=== PATIENT | female | born 1945 | race Caucasian/White ===

== ENCOUNTER 2023-03-23 14:31 | Outpatient (RCR) | payer MEDICARE, OTHER, SELFPAY | END 2023-03-23 23:59 | disposition home or self-care (01) | LOC: RST 14:31 | PROVIDERS: ATTENDING PHYSICIAN Nurse Practitioner Adult Health; FAMILY PHYSICIAN Internal Medicine | DX: I69.320 Aphasia following cerebral infarction (principal); I69.328 Other speech and language deficits following cerebral infarction; I69.398 Other sequelae of cerebral infarction; Z73.6 Limitation of activities due to disability | CPT/HCPCS: 92507; 97530; 97535 ==

== ENCOUNTER → 2023-04-02 10:12 | Outpatient (REF) | payer MEDICARE, OTHER, SELFPAY ==
[2023-04-02 12:17] LABS: HDL Cholesterol 51 mg/dl; LDL Cholesterol, Calculated 63 mg/dl; Total Cholesterol 137 mg/dl (50-199); Triglyceride 118 mg/dl (10-149); Very Low Density Lipoprotein 23 mg/dl (0-30)
== END ==
LOC: HWLAB 10:12
PROVIDERS: ATTENDING PHYSICIAN Internal Medicine; REFERRING PHYSICIAN Nurse Practitioner Adult Health
DX: E78.00 Pure hypercholesterolemia, unspecified (principal)
CPT/HCPCS: 36415; 80061

== ENCOUNTER 2023-04-25 13:34 | Outpatient (RCR) | payer MEDICARE, OTHER, SELFPAY | END 2023-04-25 23:59 | disposition home or self-care (01) | LOC: RST 13:34 | PROVIDERS: ATTENDING PHYSICIAN Nurse Practitioner Adult Health; FAMILY PHYSICIAN Internal Medicine | DX: I69.398 Other sequelae of cerebral infarction (principal); Z73.6 Limitation of activities due to disability; I69.320 Aphasia following cerebral infarction; I69.328 Other speech and language deficits following cerebral infarction | CPT/HCPCS: 92507; 97530; 97535 ==

== ENCOUNTER 2023-05-25 14:26 | Outpatient (RCR) | payer MEDICARE, OTHER, SELFPAY | END 2023-05-25 23:59 | disposition home or self-care (01) | LOC: RST 14:26 | PROVIDERS: ATTENDING PHYSICIAN Nurse Practitioner Adult Health; FAMILY PHYSICIAN Internal Medicine | DX: I63.9 Cerebral infarction, unspecified (principal); I69.320 Aphasia following cerebral infarction; I69.328 Other speech and language deficits following cerebral infarction | CPT/HCPCS: 92507; 97530; 97535 ==

== ENCOUNTER 2023-06-25 08:22 | Outpatient (RCR) | payer MEDICARE, OTHER, SELFPAY | END 2023-06-25 23:59 | disposition home or self-care (01) | LOC: RST 08:22 | PROVIDERS: ATTENDING PHYSICIAN Nurse Practitioner Adult Health; FAMILY PHYSICIAN Internal Medicine | DX: I69.328 Other speech and language deficits following cerebral infarction (principal); I69.320 Aphasia following cerebral infarction; Z73.6 Limitation of activities due to disability | CPT/HCPCS: 92507; 97530; 97535 ==

== ENCOUNTER 2023-07-26 10:08 | Outpatient (RCR) | payer MEDICARE, OTHER, SELFPAY | END 2023-07-26 23:59 | disposition home or self-care (01) | LOC: RST 10:08 | PROVIDERS: ATTENDING PHYSICIAN Nurse Practitioner Adult Health; FAMILY PHYSICIAN Internal Medicine | DX: I69.328 Other speech and language deficits following cerebral infarction (principal); I69.320 Aphasia following cerebral infarction; Z73.6 Limitation of activities due to disability | CPT/HCPCS: 92507; 97530; 97535 ==

== ENCOUNTER 2023-08-16 09:15 | Outpatient (RCR) | payer MEDICARE, OTHER, SELFPAY | END 2023-08-16 23:59 | disposition home or self-care (01) | LOC: RST 09:15 | PROVIDERS: ATTENDING PHYSICIAN Nurse Practitioner Adult Health; FAMILY PHYSICIAN Internal Medicine | DX: I69.320 Aphasia following cerebral infarction (principal); I69.328 Other speech and language deficits following cerebral infarction; Z73.6 Limitation of activities due to disability | CPT/HCPCS: 92507; 97530; 97535 ==

== ENCOUNTER 2023-08-27 23:54 | Inpatient (IN) | payer MEDICARE, OTHER, SELFPAY ==
[2023-08-27] VITALS (7 sets, daily range): BP systolic 169–190; BP diastolic 63–81; BMI 17.7
--- NOTE | 2023-08-27 22:20 | EDRN ---
Upon this RN's/pt.'s arrival to ED Rm. 28, stroke alert immediately called by head pastry chef for reported rt. sided gaze, change in mental status, and severe expressive aphasia. 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 Pt. immediately brought to CT; however, was
vomiting on table, requiring staff to stop scan and turn pt. on her side to vomit. Bao brought to CT by assisting RN, administered through prehospital IV at CT, Ct then able to be completed. Upon RN's return to Rm. 28, pt.'s and son came
back to room and met Dr. Jerez. Dr. Jerez discussed recommendation for TNK, as pt. candidate. Pt. not able to answer for herself r/t expressive aphasia and possible confusion; however, and son reporting pt. would 'absolutely not want
that medication'. Risks/ benefits explained in detail to family and pt., but family continues to refuse. Pt. does shake her head no when RN asks if pt. would want medication.
[2023-08-27 22:31] LABS: % Basophils 0.7 % (0-2); % Eosinophils 5.1 % (0-6); % Immature Granulocytes 0.2 % (0-0.5); % Lymphocytes 41.9 % (20.5-51.1); % Monocytes 8.7 % (1.7-9.3); % Neutrophils 43.4 % (42.2-75.2); Absolute Basophils 0.1 10^3/uL (0-0.2); Absolute Eosinophils 0.5 10^3/uL (0-0.7); Absolute Lymphocytes 3.9 10^3/uL (1.2-3.4); Absolute Monocytes 0.8 10^3/uL (0.1-0.6); Absolute Neutrophils 4.1 10^3/uL (1.4-6.5); Hematocrit 36.3 % (37.0-47.0); Hemoglobin 12.7 g/dL (12.0-16.0); Mean Corpuscular Hgb 30.9 pg (27.0-31.0); Mean Corpuscular Volume 88.3 fL (81.0-99.0); Mean Platelet Volume 10.6 fL (7.4-10.4); Nucleated Red Blood Cells % 0 %; Platelet Count 307 10^3/uL (130-400); Red Blood Cell Count 4.11 10^6/uL (4.20-5.40); Red Cell Dist. Width 13.2 % (11.5-14.5); White Blood Cell Count 9.4 10^3/uL (4.8-10.8)
--- NOTE | 2023-08-27 22:37 | ED.CVA ---
History of Present Illness
General
Chief Complaint: CVA/TIA Symptoms
Source: family and ambulance crew
Time Seen by Provider: 08/27/23 22:20
Nursing documentation reviewed up to this point in time: agreed with
Onset of Stroke Symptoms
Onset of symptoms known: Yes
Date of onset of symptoms: 08/27/23
Time of onset of symptoms: 21:15
Time pt last seen normal is known: Yes
Date last time pt seen normal: 08/27/23
Time last time pt seen normal: 21:00
History of Present Illness
History of Present Illness:
77-year-old female presents with confusion and expressive aphasia. Found on the floor by her in this state. They are in the process of moving and patient was watching television in her room without any other furniture. She was seated on
the floor when he found her. She was able to respond to him. She was in a confused state.
Vital signs are stable. Patient not hypoxic
Nursing note reviewed. I agree with nursing documentation up to this point in time.
Home Meds and allergies reviewed.
NUMBER AND COMPLEXITY OF PROBLEMS ADDRESSED AT THE ENCOUNTER
� Chronic conditions affecting care:
� Acute Exacerbation and/or Progression of Chronic Illness:
� Differential Diagnosis includes:
AMOUNT AND/OR COMPLEXITY OF DATA TO BE REVIEWED AND ANALYZED
I performed an independent evaluation of the following and my interpretation is:
EKG:
CT:
X-rays:
Ultrasound:
Laboratory Studies:
Other:
Review of other/old records:
Clinical information was obtained by an independent historian:
Prescriptions/Medications Considered but not given:
Further testing considered but not performed:
RISK OF COMPLICATIONS AND/OR MORBIDITY OR MORTALITY OF PATIENT MANAGEMENT
Social determinants of health affecting care: Good Social Support
Discussion with other providers: Dr. Rose, neurology
Escalation of care including admission/observation vs risk of discharge considered:
CRITICAL CARE NOTE:
Critical care statement: A total of 60 minutes of critical care time was provided for this patient. This time is separate from time utilized to perform the aforementioned documented procedures. Aggregate critical care time includes only time
during which I was engaged in work directly related to the patient's care, as described above, whether at the bedside or elsewhere in the Emergency Department.
Total Time (exclusive of procedures):
Update: and son both agree that patient does not want TNK. They do understand the risks of refusal. They feel that patient would not want any
Past History
Past History
ED Past Medical History: CVA (Left occipital stroke November 2022)
ED Past Surgical History: None
Social History
Tobacco: Smoker
Alcohol: None
Drug: None
Personal:
Living: with family
Family History
Family History: Other (Reviewed and noncontributory)
Review of Systems
Review of Systems
Allergies reviewed?: Yes
Other source history: family
All Other Systems: ROS reviewed and negative except as documented in HPI and ROS
Constitutional: Reports no symptoms
EENT: Reports no symptoms
Respiratory: Reports no symptoms
Cardiac: Reports no symptoms
ABD/GI: Reports no symptoms
: Reports no symptoms
Musculoskeletal: Reports no symptoms
Skin: Reports no symptoms
Neurological: Reports no symptoms
Endocrine: Reports no symptoms
Hematologic/Lymphatic: Reports no symptoms
Psychiatric: Reports anxiety
Phy Exam
General Physical Exam
General Presentation: well appearing
General age: appears stated age
General Skin: warm
General Habitus: normal
General Mental: alert
General Hydration: appears well hydrated
Cardiovascular Exam
Cardiovascular Exam: regular rate/rhythm
Pulmonary Exam
Pulmonary Exam: lungs clear and no respiratory distress
Neurological Exam
Neurological Exam: confused
Musculoskeletal Exam
Musculoskeletal Exam: full ROM and neck pain
Skin Exam
Skin Exam: normal color and warm/dry
Psychiatric Exam
Psychiatric Exam: labile
Scores
NIH Stroke Score
Level of Consciousness: 0 - Alert
LOC Questions: 2-Neither correct
LOC Commands: 0-Performs both correctly
Best Horizontal Gaze: 2-Total gaze palsy
Visual Lyon: 2=Full hemianopia
Facial Palsy: 1=Minor paralysis
Motor - Right Arm: 0=No drift 10 seconds
Motor - Left Arm: 0=No drift 10 seconds
Motor - Right Le-No drift 5 seconds
Motor - Left Le-No drift 5 seconds
Limb Ataxia: 0-Absent
Sensation: 0-Normal
Best Language: 2-Severe aphasia
Dysarthria: 0-Normal
Extinction and Inattention: 1-Sensory inattention
Total Score:: 10
Thrombolytic Contraindication
Reasons for NON-Tx with Thrombolytics ABSOLUTE Exclusions: Patient/family refused
Course
Orders/Labs/Results
Orders:
Orders
08/27/23 22:21
Electrocardiogram (*1) Urgent
Reason for Study: Other
Other Reason for Exam: Possible Stroke
Bedside Glucose- Treatment ONCE
Cardiac Monitoring- Treatment ONCE
EKG- Treatment ONCE
IV Insert/Care/Rem.- Treatment PRN
Vital Signs As Directed
Frequency: Other
Weight As Directed
Frequency: Once
Comment: ZERO STRETCHER SCALE FOR ACCURATE WEIGHT
O2 Therapy [RESP] Urgent
Titrate/Wean O2 to maintain O2 sat greater than (%): 93
Special Instructions: MAINTAIN CONTINUOUS O2 SATS > OR = 93%
08/27/23 22:22
Complete Blood Count/With Diff Urgent
Comprehensive Metabolic Panel Urgent
PTT Urgent
Prothrombin Time Urgent
Troponin I Urgent
08/27/23 22:23
CT Head/Neck Ang STROKE ALERT Urgent
Comment:
Reason For Exam: aphasia. recent cva
08/27/23 22:25
CT Head W/o Cont STROKE ALERT Urgent
Comment: incorrect order placed by attending
Reason For Exam: aphasia
08/27/23 22:26
Ondansetron Injectable [Zofran] 4 mg .ROUTE .STK-MED ONE
08/27/23 22:53
Speech Screening from [facility] Routine
08/27/23 22:57
Ondansetron Injectable [Zofran] 4 mg IV NOW STA
08/27/23 23:24
Ondansetron Injectable [Zofran] 4 mg IV NOW STA
08/27/23 23:44
Admit/Transfer Patient As Directed
Co-Sign Provider:
Level of Care: Inpatient admission
Assign to:: Telemetry
Physician / Group: Skip
Diagnosis: N/V, Expressive Aphasia
Reason for Telemetry: CVA/TIA
Date to Stop Telemetry: 08/30/23
Time to Stop Telemetry: 11:00
Reason for Hospitalization: N/V, Expressive Aphasia
Expected length of stay greater than two midnights?: Yes
ELOS- Estimated Length of Stay in days: 3
I certify the patient meets the requirements for IP care: Yes
08/27/23 23:46
Code Status As Directed
Resuscitation Status: Do not resuscitate
Reached after discussion with pt or family/Healthcare POA: Yes
08/27/23 23:47
DNR Bracelet Application ONCE
08/28/23 00:00
US Abdomen Complete/Upper Stat
Reason For Exam: Abd Pain, N/V, Abnormal LFTs
08/28/23 01:10
HydrALAZINE [Apresoline] 10 mg IV Q6HPRN PRN
Lactated Ringers [Lr] 1,000 ml IV 80 mls/hr
Ondansetron Injectable [Zofran] 4 mg IV Q6HPRN PRN
08/28/23 01:10
Consult Notification Routine
Specialty to Notify: Neurology
NEUROLOGY CONSULT Routine
Consulting Provider: Abhishek Rose
Was physician already notified: No
Reason for consult: CVA v Recrudescence
Activity As Directed
Activity Level: Ambulate
With Assistance
EKG with chest pain [ECG as needed] As Directed
ECG as needed for:: Chest Pain
I/O [Intake/ Output] As Directed
Frequency: Per unit guidelines
Neurological Checks As Directed
Frequency: q4h
Orthostatic Vital Signs As Directed
Orthostatic VS Frequency: BID
Pneumatic Compression Sleeves As Directed
Type: Knee high
Vital Signs As Directed
Frequency: Per unit guidelines
Oxygen Therapy [O2 Therapy] [RESP] Routine
Titrate/Wean O2 to maintain O2 sat greater than (%): 94
Ot Eval And Treat Routine
PT Consult [Pt Eval And Treat] Routine
Activity Level: Ambulate
With Assistance
Speech Therapy Eval & Treat Routine
DX Deep Vein Thrombosis Video Routine
08/28/23 Breakfast
Clear Liquid
At Your Request: Full Participation
Does patient need a safe tray?: No
Reason for opting out of Talent Program Manager order writing: Provider Decision
Basic Metabolic Panel IN AM
Cardiovascular Evaluation IN AM
Complete Blood Count/No Diff IN AM
MR Brain Without Contrast IN AM
Comment:
Reason For Exam: CVA / TIA
Recent pill cam endoscopy?: No
08/28/23 08:00
Aspirin Chewable [Low Strength Aspirin] 81 mg PO DAILY
Atorvastatin [Lipitor] 40 mg PO DAILY
NIFEdipine EXTENDED RELEASE [Procardia Xl (Extended Release)] 30 mg PO DAILY
Pantoprazole [Protonix IV] 40 mg IV DAILY
08/30/23 11:00
DC Protocol for Telemetry ONCE
Abnormal Lab Results
08/27/23
22:22
RBC 4.11 L 10^6/uL
(4.20-5.40)
Hct 36.3 L %
(37.0-47.0)
MPV 10.6 H fL
(7.4-10.4)
Absolute Lymphs (auto) 3.9 H 10^3/uL
(1.2-3.4)
Absolute Monos (auto) 0.8 H 10^3/uL
(0.1-0.6)
BUN 23 H mg/dl
(7-17)
Creatinine 1.1 H mg/dL
(0.6-1.0)
Glucose 115 H mg/dl
(70-99)
AST 62 H U/L
(14-36)
ALT 37 H U/L
(0-35)
Alkaline Phosphatase 305 H U/L
(38-126)
08/27/23 22:22
08/27/23 22:22
Vital Signs
Initial and Last Documented VS:
Initial Vital Signs
Pulse Resp Pulse Ox
86 17 97
08/27/23 22:43 08/27/23 22:43 08/27/23 22:43
Last Documented Vital Signs
Temp Pulse Resp BP Pulse Ox
97.9 F 64 18 176/79 98
08/28/23 03:05 08/28/23 03:05 08/28/23 03:05 08/28/23 03:05 08/28/23 03:05
*Critical Care Note
Total Time (30-74mins, 75-104mins- exclusive of procedures): Not Applicable
Update Note
Update Note:
Dian Obando Head CT: No CT evidence for acute intracranial hemorrhage or transcortical infarct.
Large chronic transcortical infarct in the medial left occipital lobe and posterior medial left temporal lobe with associated encephalomalacia.
Chronic infarct in the posterior left thalamus.
Small chronic lacunar infarcts in the right caudate nucleus and basal ganglia.
Severe white matter leukoaraiosis in both cerebral hemispheres.
ASPECT score: 10
[facility]ian O[facility] CTA: NECK CTA:
SEVERE STENOSIS (70% diameter) in the PROXIMAL RIGHT ICA caused by severe calcific atherosclerotic plaque.
50-70% diameter stenosis in the distal left CCA and proximal left ICA.
Less than 50% diameter stenoses in both proximal vertebral arteries.
Moderate to severe discogenic degenerative disease in the cervical spine.
HEAD CTA:
Severe atherosclerotic plaque in both intracranial internal carotid arteries causing a 50-70% diameter stenosis on the left and less than 50% diameter stenosis on the right.
No CTA evidence for severe stenosis or occlusion in the middle or anterior cerebral arteries.
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
Atherosclerotic plaque in the right posterior cerebral artery and vertebral arteries causing less than 50% diameter stenosis.
Large chronic transcortical infarct in the medial left occipital and temporal lobes.
Small chronic lacunar infarcts in the right caudate nucleus and right basal ganglia.
Severe white matter leukoaraiosis in both cerebral hemispheres.
ED Attending Note
-
Portions of this chart may have been created with voice recognition software.� Occasional wrong word or��sound alike� substitutions may have occurred due to the inherent limitations of voice recognition software.
Discharge Plan
Departure
Patient Disposition: Admit
Date of Disposition: 08/27/23
Time of Disposition: 23:14
Admit to: Telemetry
Presentation/result/management discussed w/ accepting MD/DO: Hospitalist
Discharge Problem:
Acute cerebrovascular accident (CVA)
Interventions
Interventions:
*Risk Screen - Suicide Last Done: 08/27/23 22:58
*General Assessment Last Done: 08/27/23 22:58
*Neglect/Abuse Screening Last Done: 08/27/23 22:58
ED- Fall Risk Assessment Last Done: 08/28/23 01:02
*ED COVID-19 Vaccine History Last Done: 08/28/23 01:15
*Nursing Disposition Last Done: 08/28/23 01:02
ED- Pulmonary Assessment Last Done: 08/27/23 22:57
ED- Neurological Assessment Last Done: 08/27/23 22:47
ED- Cardiac Assessment Last Done: 08/27/23 22:57
ED Swallowing Screen Last Done: 08/28/23 01:02
Discharge Date and Time
Discharge Date/Time: 08/28/23 01:03
[2023-08-27 22:43] LABS: INR 1.01; PT 13.1 Sec (11.4-14.6)
[2023-08-27 22:44] LABS: APTT 27.8 Sec (23.4-35.0)
[2023-08-27 22:45] LABS: ALT (SGPT) 37 U/L (0-35); AST (SGOT) 62 U/L (14-36); Albumin 4.7 g/dl (3.5-5.0); Alkaline Phosphatase 305 U/L (38-126); Blood Urea Nitrogen 23 mg/dl (7-17); Calcium 9.9 mg/dl (8.4-10.2); Carbon Dioxide 23 mmol/L (22-30); Chloride 105 mmol/L (98-107); Glucose 115 mg/dl (70-99); Potassium 4.2 mmol/L (3.5-5.1); Sodium 139 mmol/L (135-145); Total Bilirubin 0.7 mg/dl (0.2-1.3); Total Protein 7.6 g/dl (6.3-8.2); eGFR 51.75
[2023-08-27] MEDS: ZOFRAN 4 MG IV ×2 (22:57→23:25)
[2023-08-27 23:24] LABS: Troponin I < 0.012 ng/ml
--- NOTE | 2023-08-27 23:49 | HPS.HSE ---
Family Physician
-
Family Physician: Fabiola Hernandez DO
Chief Complaint
-
N/V, Aphasia
History of Present Illness
Patient is a 77y F with PMH significant for hypertension and prior CVA (11/2022) who presents to ED complaining of N/V and 'feeling lousy'. History obtained from patient and family at the bedside. states that they are in the process of
moving and there is very little furniture in the home. Patient was seated in the bedroom on the floor watching TV. The entered the room some time later (less than one hour unobserved) and found the patient lying face down on the floor.
She was awake when he checked on her and patient stated 'I feel lousy'. He helped her to sit upright and she began to have episodes of emesis. estimate about 6 episodes of non-bloody bilious emesis. Patient denies any abdominal pain. She
denies any fevers / chills.
attempted to discuss her symptoms, but noted that she seemed to have difficulty producing words and would occasionally speak nonsense.
On further questioning, it is noted that expressive aphasia in addition to homonymous hemianopsia were symptoms of her original stroke in 11/2022.
/ son note no NEW neurologic deficits, but significant worsening of her prior symptoms.
In the ED, patient is holding her abdomen and continues to complain of nausea and 'feeling lousy'.
Medical History
Past Medical History
Past Medical History: Reports Other
Additional Past Medical History:
Hypertension
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
Past Surgical History: Reports None
Social History
Tobacco: Former Smoker (Quit smoking 11/2022 after CVA. > 40 pack years total use.)
Alcohol: None
Drug: None
Personal:
Living: With Family
Family History
Family History: Not pertinent
Allergies / Home Medications
Allergies reflects when Allergies were last updated in [employer].
Home Medications with original date entered in [employer]
Allergy/Medication List:
Allergies
Allergy/AdvReac Type Severity Reaction Status Date / Time
No Known Allergies Allergy Verified 12/17/22 14:23
Home Medications
aspirin 81 mg chewable tablet 81 mg PO DAILY 90 days #90 tabs 12/19/22
nifedipine 30 mg tablet,extended release 30 mg PO DAILY 30 days #30 tabs 12/19/22
atorvastatin 40 mg tablet 40 mg PO DAILY 08/27/23
Review of Systems
-
History Source: Patient and Family
A 12 point ROS was completed and negative except as noted: Yes
Constitutional: Reports Fatigue; Denies Fever or Chills
EENT: Denies Sore Throat
Respiratory: Denies Cough or Trouble Breathing
Cardiac: Denies Chest Pain or Palpitations
Abdomen/GI: Reports Nausea and Vomiting; Denies Abdominal Pain, Diarrhea, Constipated, Bloody Stools or Black Stools
: Denies Dysuria, Frequency or Flank Pain
Neurological: Denies Dizzy or Headache
Psych: Denies Depression or Anxiety
Physical Exam
Vital Signs
Vital Signs
Temp Pulse Resp BP Pulse Ox
97.6 F 72 13 169/80 98
08/27/23 23:00 08/27/23 23:30 08/27/23 23:30 08/27/23 23:30 08/27/23 23:30
Physical Exam
General: Other (77y F in mild distress due to nausea / abdominal discomfort.)
HEENT: Other (Dry MM. Neck supple.)
Respiratory: Other (Bibasilar rales about 1/3 up. No wheeze / rhonchi.)
Cardiac: S1/S2, Regular Rhythm and Murmur (II/ BESSIE)
GI: Soft, Non Distended, Normal Bowel Sounds and Other (Mild, diffuse tenderness. Pos BS. No rebound / guarding.)
Musculoskeletal: No Clubbing, No Cyanosis and Other (Trace pedal edema.)
Neuro: Awake, Alert and Other (Expresive aphasia. Unable to name objects / answer most questions. Answers Y/N questions appropriately. Evident R visual field deficit.)
Laboratory Results
-
08/27/23 22:22
08/27/23 22:22
Laboratory Results
PT 13.1 Sec (11.4-14.6) 08/27/23 22:22
INR 1.01 08/27/23 22:22
APTT 27.8 Sec (23.4-35.0) 08/27/23 22:22
Total Bilirubin 0.7 mg/dl (0.2-1.3) 08/27/23 22:22
AST 62 U/L (14-36) H 08/27/23 22:22
ALT 37 U/L (0-35) H 08/27/23 22:22
Alkaline Phosphatase 305 U/L (38-126) H 08/27/23 22:22
Troponin I < 0.012 ng/ml 08/27/23 22:22
Impression/Plan
-
A/P: Patient is a 77y F with PMH significant for hypertension and prior CVA who presents to ED for evaluation of N/V and worsening aphasia.
Expressive Aphasia
Prior CVA with Right Homonymous Hemianopsia and Expressive Aphasia
- Admit for further evaluation and treatment.
- ? new CVA or (more likely) recrudescence of prior stroke symptoms due to other acute illness.
- Family notes no strictly new neurologic deficits.
- Continue ASA, statin, etc.
- Follow neuro exam for any changes.
- MRI in AM for comparison.
- Neurology evaluation for additional recommendations.
- Permissive hypertensive initial 24 hours and then adjust meds as needed for improved BP control.
N/V
Abnormal LFTs
- Unclear etiology. ? viral gastroenteritis, etc as primary issue here.
- Check abd US now to evaluate for possible GB disease, etc.
- Supportive care including IVFs, antiemetics, etc.
- Follow for any new / worsening symptoms.
- Further work-up depending on US results.
- Follow LFTs for changes.
Essential Hypertension
- BP elevated in the ED, but < 210/120.
- Permissive hypertension for now as noted above.
- Continue usual nifedipine with holding parameters.
- Adjust med regimen as needed in the next 24 hours for improved BP control.
DVT Prophylaxis: SCDs
Code Status: DNR
[2023-08-28] VITALS (11 sets, daily range): BP systolic 119–187; BP diastolic 47–80; PULSE 65–77; BMI 17.3
[2023-08-28] MEDS: LR 1000 IV ×2 (01:18→20:29)
[2023-08-28 07:29] LABS: Hematocrit 34.9 % (37.0-47.0); Mean Corp Hgb Conc. 34.4 g/dL (33.0-37.0); Mean Corpuscular Hgb 30.4 pg (27.0-31.0); Mean Corpuscular Volume 88.4 fL (81.0-99.0); Mean Platelet Volume 10.1 fL (7.4-10.4); Platelet Count 257 10^3/uL (130-400); Red Blood Cell Count 3.95 10^6/uL (4.20-5.40); White Blood Cell Count 6.3 10^3/uL (4.8-10.8)
[2023-08-28] MEDS: PROTONIX IV 40 MG IV (08:24)
[2023-08-28] MEDS: NSS (PRESERVATIVE FREE) 10 ML IV (08:24)
[2023-08-28] MEDS: LOW STRENGTH ASPIRIN 81 MG PO (08:25)
[2023-08-28] MEDS: PROCARDIA XL (EXTENDED RELEASE) 30 MG PO (08:25)
[2023-08-28] MEDS: LIPITOR 40 MG PO (08:26)
--- NOTE | 2023-08-28 08:45 | PTOTSP ---
Speech Language Pathology
Pt seen for language evaluation via the Quick Aphasia Battery (QAB), form 1A. Pt with an overall score of 5.29, indicating moderate deficits. Pt with the following scores (severity ratings) on the following subtests: word comprehension= 9.58
(WNL), sentence comprehension= 2.08 (severe), word finding= 1.00 (severe), grammatical construction= 7.00 (mod), speech motor programming= 10.00 (WNL), repetition= 10.00 (WNL), reading= 0.00 (severe). Deficits appear worse than when last seen by
REWRITER in outpatient. Pt currently emotional, which could have negatively affected performance.
Pt also seen for clinical bedside swallow evaluation. P.O. trials of puree, regular solids, and thin liquids provided. Adequate mastication, bolus formation, and A-P transit noted with no oral residue. No overt signs of aspiration.
Recommend:
(1) Regular solids/thin liquids
(2) General aspiration precautions
(3) Meds as tolerated
(4) Resume outpatient speech therapy at discharge
(5) REWRITER to continue to follow
[2023-08-28 08:49] LABS: Urine Albumin Negative (Neg - Trace); Urine Bilirubin Negative (Negative); Urine Character Clear (Clear); Urine Color Yellow; Urine Glucose Negative (Negative); Urine Ketone 1+ (Negative); Urine Leukocyte 1+ (Negative); Urine Nitrite Negative (Negative); Urine Occult Blood Negative (Negative); Urine Specific Gravity 1.005 (<1.030); Urine Urobilinogen Negative (Neg - 1+)
--- NOTE | 2023-08-28 08:59 | CON.NEURO4 ---
Addendum entered and electronically signed by Abhishek Rose MD 08/28/23 11:41:
Studies reviewed.
I have personally examined the patient. I reviewed and agree with the TAX COMPLIANCE MANAGER's Note.
My addenda:
Awake, alert, interactive. No acute distress.
Speech clear. Irritable. Some lack of word finding
Follows 2-step requests w/ difficulty. No tremor.
Extra-ocular movements grossly intact.
Facial movements full and symmetric. Hearing intact to normal conversational volume.
Normal UE movements bilaterally.
Neck: full ROM.
Chest: no dyspnea
Heart: no JVD
Ext: (-) Clubbing, (-) Cyanosis, (-) Edema
IMPRESSIONS/RECOMMENDATIONS:
Abrupt onset of questionable worsening of aphasia with significant emesis. Less likely to be associated with a neurological dysfunction and more likely the patient had secondary disorder producing symptoms
Due to relatively recent large ischemic stroke, recheck MRI of brain
Consult vascular surgery due to suggested 70% right internal carotid artery stenosis although this is likely asymptomatic
Continue usual aspirin
Eventual normotension starting at 2100 hrs.
Continue atorvastatin
Consider cognitive evaluation as outpatient
D/W patient
Will continue to follow pending results.
Original Note:
Documented by User: Ginger Decker NP 08/28/23 11:13
Consultation - Neurology 4
-
CONSULTING PHYSICIAN: Abhishek Rose MD
REFERRING PHYSICIAN: Hospitalists/Dr. Valdivia
DICTATED BY: CORBIN Dow
DATE/TIME OF REQUEST: 08/28/23
DATE/TIME OF CONSULTATION: 08/28/23
Reason for Consultation: Confusion
History of Present Illness:
This is a 77-year-old female who has presented to the hospital with report of nausea, vomiting, and worsened baseline aphasia. Patient is known to our inpatient and outpatient Neurology service since an encounter in November 2022 for a large left
occipital ischemic stroke.
From my previous evaluation on 12/18/22:
'This is a 77-year-old right-handed female who has presented to the hospital on 12/17/22 with report of right-sided visual field cut, ataxic gait, and right upper extremity weakness starting at 12/16/22 at 1700 while out to dinner. Patient is
currently confused and mildly aphasic; therefore, this information is mostly obtained from medical records. Patient reports that suddenly she lost her ability to have a 'normal reaction to things.' Her noted that her responses seemed slower
and she has having difficulty using a fork in her right hand. She proceeded to go home and go to bed at 1830. The following day (12/17/22), she woke up and her symptoms persisted, prompting him to bring her to the ER for evaluation. CT head was
obtained in the ER and demonstrates an acute/subacute left occipital infarct. She was not taking any blood-thinning medications. She was outside of the time window and not a candidate for TNK or IAT, she was loaded with aspirin and clopidogrel.
Currently, patient denies any headache, dizziness, swallow difficulty, numbness, weakness, chest pain, palpitations, and shortness of breath. She endorses right-sided vision loss in both eyes and reports that she is having difficulty formulating her
thoughts/slow speech.'
MRI brain on 12/18/22 confirmed a subacute large ischemic left occipital lobe infarct. 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 Patient completed 21 days of DAPT then discontinued Plavix and has continue on aspirin 81mg daily. She has a
residual right homonymous hemianopia and mild aphasia since her stroke in November 2022. She is still not driving.
Yesterday (08/27/23), patient's reports that she was sitting on the floor watching TV as they are in the process of moving and have little furniture left in the house. About an hour later, he returned to the room and found her lying facedown
on the ground. She told him she felt 'lousy.' She remembers feeling nauseous and then proceeded to vomit about several times. Following her vomiting, he reports that her baseline aphasia was significantly worsened, prompting him to bring her to the
ER for evaluation. CT head was obtained on arrival and is negative for any acute findings. CTA head/neck was obtained and is suggestive of 70% right ICA stenosis and 50-70% L ICA stenosis which was not previously reported on MRA head/neck imaging
from 11/2022. She was not a candidate for TNK/IAT due to family refusal and lack of LVO. Today (08/28/23), patient remains moderately aphasic, speech therapy at bedside reports that this is worse than her baseline. She denies any headache, dizziness,
vision changes, speech/swallow difficulty, numbness, weakness, chest pain, palpitations, and shortness of breath.
Past Medical History: Large left occipital ischemic stroke 11/2022, HTN, HLD
Surgical History: Denies.
Family History: Reviewed and noncontributory.
Social History: Former smoker, quit in February 2023. Occasional alcohol. Denies illicit drug use.
Allergies: No known allergies.
Home Medications: See below.
Review of Symptoms:
Patient denies any fever, headache, chest pain, shortness of breath, GI or symptoms.
�Per the HPI.�All systems are reviewed negative except above.
Physical Exam:
The patient is afebrile, abdomen is nondistended, breathing is unlabored, skin is warm and dry, no edema.
NIH Stroke Scale:
I performed the NIH stroke scale on the patient on 08/28/23 at 0900. The patient scored 4 points on the NIH stroke scale assessment, which were assigned as follows: See below.
Neurologic Examination:
The patient is awake, alert and oriented to person, place, and year with yes/no choices, not month.. She is able to follow inconsistent commands and answer some questions appropriately. There is moderate aphasia, no dysarthria. On cranial nerve
assessment, pupils are 3 mm bilateral, round and reactive to light and accommodation. There is a right homonymous hemianopia. Extraocular movements are intact. Facial sensations are intact and bilaterally symmetrical, there is no facial asymmetry.
Hearing is intact bilaterally to normal conversation volume. Tongue palate and uvula are midline. Sternocleidomastoid strengths are full bilaterally. Motor strengths are 5/5 bilateral upper and lower extremities on medical research [place] scale.
There is no drift or involuntary movement noted. Deep tendon reflexes are 2+ bilateral upper and lower extremities and Babinski is absent bilaterally. There was no extinction noted on double simultaneous stimulation. Coordination is intact by finger
to nose bilaterally.
Lab Results: See below.
Neuro Imaging:
1. CT Head 08/27/23: No CT evidence for acute intracranial hemorrhage or transcortical infarct. Large chronic transcortical infarct in the medial left occipital lobe and posteromedial left temporal lobe with associated encephalomalacia. Chronic
infarct in the posterior left thalamus. Small chronic lacunar infarcts in the right caudate nucleus and basal ganglia. Severe white matter leukoaraiosis in both cerebral hemispheres. ASPECT score: 10.
2. CTA head/neck 08/27/23: NECK CTA: SEVERE STENOSIS (70% diameter) in the PROXIMAL RIGHT ICA caused by severe calcific atherosclerotic plaque. 50-70% diameter stenosis in the distal left CCA and proximal left ICA. Less than 50% diameter stenoses in
both proximal vertebral arteries. Moderate to severe discogenic degenerative disease in the cervical spine.
HEAD CTA:
Severe atherosclerotic plaque in both intracranial internal carotid arteries causing a 50-70% diameter stenosis on the left and less than 50% diameter stenosis on the right. No CTA evidence for severe stenosis or occlusion in the middle or anterior
cerebral arteries. CHRONIC COMPLETE OCCLUSION of the P1 segment of the LEFT POSTERIOR CEREBRAL ARTERY. Atherosclerotic plaque in the right posterior cerebral artery and vertebral arteries causing less than 50% diameter stenosis. Large chronic
transcortical infarct in the medial left occipital and temporal lobes. Small chronic lacunar infarcts in the right caudate nucleus and right basal ganglia. Severe white matter leukoaraiosis in both cerebral hemispheres.
Differentials for the patient's presentation include:
1. Acute ischemic stroke producing worsened baseline aphasia possible.
2. TME possibly contributing to worsened baseline aphasia.
3. CT head suggestive of multiple old ischemic infarcts in the left thalamus, right caudate nucleus, and basal ganglia, in addition to known left occipital infarct.
4. CTA head/neck suggestive of 70% R ICA stenosis and 50-70% L ICA stenosis not previously reported on MRA imaging from 11/2022, unclear at this point if this is related to current speech change.
Patient has the following risk factors for their symptoms: Hx stroke, HTN, HLD, vomiting
IV Tenecteplase/IAT candidacy: She was not a candidate for TNK/IAT due to family refusal and lack of LVO.
Recommendations:
-Continue aspirin 81mg daily.
-MRI brain noncontrast pending.
-Vascular Surgery evaluation for ICA stenosis.
-Permissive hypertension SBP<220, DBP<120 until 2100 tonight, then goal normotension.
-LDL goal <70. LDL is 61. Continue home atorvastatin 40mg daily.
-Goal normoglycemia, hbA1c is 5.6.
-NIHSS and neurological checks per unit guidelines.
-Provide patient with a stroke education packet.
-PT/OT/ST evaluations.
-DVT prophylaxis.
-Will follow pending results.
Discussed patient care with: Dr. Rose,
Vital Signs and Labs
-
Vital Signs and Labs:
Vital Signs
Temp Pulse Resp BP Pulse Ox
97.9 F 60 16 185/73 97
08/28/23 07:57 08/28/23 07:57 08/28/23 07:57 08/28/23 07:57 08/28/23 07:57
Lab Results
08/28/23 07:04
08/28/23 07:04
PT 13.1 Sec (11.4-14.6) 08/27/23 22:22
INR 1.01 08/27/23 22:22
APTT 27.8 Sec (23.4-35.0) 08/27/23 22:22
Sodium 137 mmol/L (135-145) 08/28/23 07:04
Potassium 4.1 mmol/L (3.5-5.1) 08/28/23 07:04
BUN 19 mg/dl (7-17) H 08/28/23 07:04
Glucose 87 mg/dl (70-99) 08/28/23 07:04
Calcium 9.6 mg/dl (8.4-10.2) 08/28/23 07:04
LDL Cholesterol, Calc 61 mg/dl 08/28/23 07:04
Medications
-
Active Medications
Generic Name Dose Route Start Last Admin
Trade Name Freq PRN Reason Stop Dose Admin
Aspirin 81 mg 08/28/23 08:00 08/28/23 08:25
Aspirin 81 Mg Chewable Tablet PO 09/25/23 07:59 81 mg
DAILY FELICIA Administration
Atorvastatin Calcium 40 mg 08/28/23 08:00 08/28/23 08:26
Atorvastatin (Lipitor) 40 Mg Tablet PO 09/25/23 07:59 40 mg
DAILY FELICIA Administration
Hydralazine HCl 10 mg 08/28/23 01:10
Hydralazine 20 Mg/Ml Vial IV 09/25/23 01:09
Q6HPRN PRN
SBP > 200
Lactated Ringer's 1,000 mls @ 80 mls/hr 08/28/23 01:10 08/28/23 01:18
Lr IV 1,000 mls
.[id number] FELICIA Administration
Nifedipine 30 mg 08/28/23 08:00 08/28/23 08:25
Nifedipine 30 Mg Extended Release Tablet PO 09/25/23 07:59 30 mg
DAILY FELICIA Administration
Ondansetron HCl 4 mg 08/28/23 01:10
Ondansetron 4 Mg/2 Ml Vial IV 09/25/23 01:09
Q6HPRN PRN
nausea and vomiting
Pantoprazole Sodium 40 mg 08/28/23 08:00 08/28/23 08:24
Pantoprazole Sodium 40 Mg/10 Ml Vial IV 09/25/23 07:59 40 mg
DAILY FELICIA Administration
Sodium Chloride 0 flush 08/28/23 02:00
Sodium Chloride 0.9% (Flush) Syringe IV 09/25/23 01:59
PER PROTOCOL FELICIA
Sodium Chloride 10 ml 08/28/23 08:00 08/28/23 08:24
Sodium Chloride 0.9% (Preservative Free) 10 Ml Vial IV 09/25/23 07:59 10 ml
DAILY FELICIA Administration
Home Medications
�Medication �Instructions �Recorded
aspirin 81 mg chewable tablet 81 mg PO DAILY 90 days #90 tabs 12/19/22
nifedipine 30 mg tablet,extended 30 mg PO DAILY 30 days #30 tabs 12/19/22
release
atorvastatin 40 mg tablet 40 mg PO DAILY High Cholesterol 08/27/23
NIH Stroke Score
Subsequent NIH Scale
Date of Subsequent NIH Scale: 08/28/23
Time of Subsequent NIH Scale: 09:00
NIH Stroke Score
Level of Consciousness: 0 - Alert
LOC Questions: 1-Answers one correctly
LOC Commands: 0-Performs both correctly
Best Horizontal Gaze: 0-Normal
Visual [place]: 2=Full hemianopia
Facial Palsy: 0=Normal, symmetrical
Motor - Right Arm: 0=No drift 10 seconds
Motor - Left Arm: 0=No drift 10 seconds
Motor - Right Le-No drift 5 seconds
Motor - Left Le-No drift 5 seconds
Limb Ataxia: 0-Absent
Sensation: 0-Normal
Best Language: 1-Mild aphasia
Dysarthria: 0-Normal
Extinction and Inattention: 0-No abnormality
Total Score:: 4
Modified Vasu (mRS) Score
Modified Mcdonough Scale (mRS): Moderate disability. Requires some help, able to walk unassisted.
Score: 3

Documented by User: Abhishek Rose MD 08/28/23 11:26
NIH Stroke Score
NIH Stroke Score
Total Score:: 4
Modified Vasu (mRS) Score
Score: 3
[2023-08-28 09:27] LABS: Blood Urea Nitrogen 19 mg/dl (7-17); Calcium 9.6 mg/dl (8.4-10.2); Carbon Dioxide 16 mmol/L (22-30); Chloride 109 mmol/L (98-107); Estimated Creatinine Clearance 47 ml/min; Glucose 87 mg/dl (70-99); HDL Cholesterol 52 mg/dl; LDL Cholesterol, Calculated 61 mg/dl; Potassium 4.1 mmol/L (3.5-5.1); Sodium 137 mmol/L (135-145); Total Cholesterol 126 mg/dl (50-199); Triglyceride 68 mg/dl (10-149); Very Low Density Lipoprotein 13 mg/dl (0-30); eGFR > 60.00
[2023-08-28 09:36] LABS: Glycohemoglobin (HgbA1c) 5.6 % (4.0-5.6)
[2023-08-28 09:42] LABS: Urine Bacteria Few (Negative)
--- NOTE | 2023-08-28 09:42 | CON.VAS ---
Addendum entered and electronically signed by Matt Tyler III, MD 08/29/23 13:35:
This patient was seen and examined with CORBIN Mello. I agree with the history and physical exam as well as the assessment and plan. I have the following additions:
Previous left occipital stroke in November 2022
Current symptoms as described
CT angiogram performed demonstrating bilateral carotid artery stenosis (see below)
Carotid stenosis does not seem to be symptomatic based on current presentation and by my direct centerline measurement below is not high grade on either side. I explained the results of her CT angiogram and carotid duplex to her and her son
(bedside). Unless neurology feels otherwise my recommendation is for medical management for her arterial disease risk factors and outpatient follow-up for ongoing surveillance.
Additional workup for prior stroke and current symptoms per neurology
Call with questions/concerns.
Signed:
Matt Tyler III, MD
[facility] Surgery
[phone] (cell)
Original Note:
Consultation
Consultation Request
Date/Time Consultation Performed: 08/28/2023 1500
Requesting Provider: Abhishek Rose MD
Performing Provider: Lorena Vera NP-Jim for Matt Tyler III, MD
Reason for Consultation: Bilateral carotid stenosis
Medical History
-
Chief Complaint: Nausea/vomiting, aphasia, generalized weakness
History of Present Illness:
This is a 77-year-old right-handed female with significant past medical history of hypertension, hyperlipidemia, and left occipital ischemic stroke who presented to [facility] on 08/27/2023 with reports of nausea/vomiting, aphasia, confusion,
and generalized weakness/malaise. Patient's son is at bedside and also contributing to HPI. Patient's son endorses that patient experienced several episodes of emesis with accompanying confusion, weakness, and aphasia yesterday evening. He states
her presentation was basically identical to the presentation she had with her ischemic stroke in November,. However, patient and son both endorse that upon awakening this morning she had complete resolution of her symptoms and is back to
neurological baseline. ED evaluation included a CT angiogram of head and neck which demonstrated bilateral carotid stenosis prompting vascular consultation. CT angiogram of neck resulted with, 'severe stenosis (70% diameter) at the proximal right
ICA caused by severe calcific atherosclerotic plaque, and 50-70% diameter stenosis in the distal left CCA and proximal left ICA.' Patient does endorse following her stroke in November she has word finding difficulty, which is her new baseline.
Currently, she offers no complaints and is tolerating p.o. intake. Denies nausea, vomiting, fever, chills, chest pain, shortness of breath, unilateral weakness, new vision loss or changes, and dysarthria.
Past Medical History
Past Medical History: CVA (11/2022 (Left Occipital and Parietal CVA with Homonymous Hemianopsia and Expressive Aphasia)), HTN and Hypercholesterolemia
Social History
Tobacco: Former Smoker (Quit smoking 11/2022 after CVA. > 40 pack years total use)
Alcohol: None
Drug: None
Personal:
Living: With Family
Allergies / Home Medications
Allergy/AdvReac Type Severity Reaction Status Date / Time
No Known Allergies Allergy Verified 12/17/22 14:23
�Medication �Instructions �Recorded �Confirmed �Type
aspirin 81 mg chewable tablet 81 mg PO DAILY 90 days #90 tabs 12/19/22 08/27/23 Rx
nifedipine 30 mg tablet,extended 30 mg PO DAILY 30 days #30 tabs 12/19/22 08/27/23 Rx
release
atorvastatin 40 mg tablet 40 mg PO DAILY High Cholesterol 08/27/23 08/27/23 History
Review of Systems
-
History Source: Patient
Constitutional: Reports No Symptoms
EENT: Reports No Symptoms
Respiratory: Reports No Symptoms
Cardiac: Reports No Symptoms
Abdomen/GI: Reports No Symptoms, Nausea (Upon presentation now resolved) and Vomiting (Upon presentation to the ED now resolved)
: Reports No Symptoms
Musculoskeletal: Reports No Symptoms
Skin: Reports No Symptoms
Neurological: Reports No Symptoms and Other (Difficulty with word finding, resolved and now back to baseline)
Physical Exam
Vital Signs
Temp Pulse Resp BP Pulse Ox
97.9 F 60 16 185/73 97
08/28/23 07:57 08/28/23 07:57 08/28/23 07:57 08/28/23 07:57 08/28/23 07:57
Lab Results
08/28/23 07:04
08/28/23 07:04
Troponin I < 0.012 ng/ml 08/27/23 22:22
Physical Exam
General: Well Nourished, No Apparent Distress and Comfortable
HEENT: Normocephalic, Anicteric and Atraumatic
Respiratory: Non Labored Respirations
Cardiac: Negative JVD
GI: Non Distended
Musculoskeletal: No Edema
Skin: Warm and Dry
Neuro: AO x 3 and Nonfocal/Grossly Intact
Psych: Calm
Assessment / Plan
-
Assessment: 77-year-old female admitted for workup of nausea/vomiting and aphasia with incidental finding of asymptomatic bilateral carotid stenosis on CT angiogram imaging and ultrasound
Plan:
Carotid ultrasound to further quantify stenosis/establish baseline velocities and to aid in future surveillance
MRI of brain does not demonstrate new acute infarct, thus symptomatology patient reported at presentation to ED does not represent symptomatic carotid stenosis
Recommend outpatient follow-up and continued surveillance with repeat ultrasound imaging in 6 months, appointment made and left in discharge instructions
I performed this shared service with the attending. I evaluated the patient [id number] and have entered clinical documentation as shown in the encounter note. I performed the following component(s): history and physical exam. Note that medical
decision making is not final until attested by vascular attending.
[2023-08-28 09:46] LABS: TSH Reflex To Free T4 0.87 uIU/ml (0.47-4.68)
[2023-08-28 09:50] LABS: Ferritin 56.4 ng/ml (11.1-264.0)
[2023-08-28 10:21] LABS: Folate 7.3 ng/ml (2.76-20)
[2023-08-28 11:20] LABS: Vitamin B12 377 pg/ml (239-931)
--- NOTE | 2023-08-28 13:27 | W.PN.HOSP.TC ---
Today's Communication/Plan
-
Await CUS and MRI
Vascular eval
Advance diet
PT OT
Assessment / Plan
Assessment / Plan
77-year-old female came to the hospital with nausea vomiting and feeling lousy. Ate left over dinner, She was found laying face down by the he helped him to sit upright. ( She had no furniture as they were inn the process of moving and
was sitting On the floor watching TV) Patient also had some emesis.
CTA of the neck-severe stenosis in the proximal right ICA with severe calcific atherosclerotic plaque. 50 to 70% diameter stenosis in the distal left CCA and proximal left ICA. Less than 50% diameter stenosis of both proximal vertebral arteries
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
HEAD CTA-Severe atherosclerotic plaque in both intracranial internal carotid arteries causing a 50-70% diameter stenosis on the left and less than 50% diameter stenosis on the right.No CTA evidence for severe stenosis or occlusion in the middle or
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
transcortical infarct in the medial left occipital and temporal lobes.Small chronic lacunar infarcts in the right caudate nucleus and right basal ganglia.Severe white matter leukoaraiosis in both cerebral hemispheres.
CVS: S1-S2 normal
Chest: CTA B/L
Abdomen: Soft, NT / Bowel sounds present
Extremities: No edema, normal pulses
ARTIFICIAL INTELLIGENCE SPECIALIST: Right hemianopsia
# Expressive aphasia- resolved last night
Prior history of CVA with right, numerous hemianopsia and expressive aphasia.
CT -Large chronic transcortical infarct in the medial left occipital and temporal lobes.Small chronic lacunar infarcts in the right caudate nucleus and right basal ganglia.
Continue telemetry
Neurochecks and NIH scale
Neurology has been consulted
Vascular surgery eval given CTA findings
CUS done results pending.
EKG -SR
MRI brain pending.
Continue aspirin and statin
# Nausea and vomiting
Unclear if related to neuro event versus GI
Symptomatic treatment
# Hypertension blood pressure elevated in the emergency room on admission
Permissive hypertension with holding out stroke
Nifedipine ordered with holding parameters
# Acute kidney injury-likely secondary to nausea and vomiting-Resolved. Stop IVF
#Met acidosis- Likely from nausea and vomiting . Add PO Bicarb
# Elevated LFTs-ultrasound abdomen-CBD 0.6 endometrial. No gallstones or Montoya sign. Add LFTS to Morning labs
# Nonobstructing right renal calculus
# Hyperlipidemia/Atherosclerosis-continue atorvastatin
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
# Tobacco use
# Ambulatory dysfunction
# DVT prophylaxis-Lovenox
# DNR status
D/W Son at bed side. Reviewed CTA and blood tests. Plan discussed
Discussed with neurology
time over 50 min
Anticipated Discharge: 24 - 48 hours
Subjective/Interval History
-
Date of Service: August 28, 2023
Objective Data
-
Labs:
Laboratory Results
08/28/23
07:04
WBC 6.3
Hgb 12.0
Hct 34.9 L
Plt Count 257
Sodium 137
Potassium 4.1
Chloride 109 H
Carbon Dioxide 16 L
BUN 19 H
Creatinine 0.8
Glucose 87
Calcium 9.6
Vital Signs:
Vital Signs
Temp Pulse Resp BP Pulse Ox
98.3 F 67 18 119/54 97
08/28/23 11:00 08/28/23 11:00 08/28/23 11:00 08/28/23 12:38 08/28/23 11:00
I&O
08/27/23 08/28/23 08/29/23
06:59 06:59 06:59
Intake Total 480 / 480
Balance 480 / 480
[2023-08-28 14:33] LABS: ALT (SGPT) 34 U/L (0-35); AST (SGOT) 58 U/L (14-36); Albumin 4.1 g/dl (3.5-5.0); Alkaline Phosphatase 245 U/L (38-126); Direct Bilirubin 0.3 mg/dl (0.0-0.4); Total Bilirubin 0.6 mg/dl (0.2-1.3); Total Protein 6.8 g/dl (6.3-8.2)
[2023-08-29 03:10] VITALS: BP 171/75
[2023-08-29 07:15] VITALS: BP 158/83; BP 176/86; BP 199/80; PULSE 62; PULSE 70; PULSE 81
--- NOTE | 2023-08-29 07:41 | W.PN.NEURO.1 ---
Today's Communication / Plan
-
Appreciate assistance of vascular surgery. There is no evidence of carotid stenosis that is needing surgical remediation
Goal of normotension
Goal of normoglycemia
Continue atorvastatin
Consider cognitive evaluation as outpatient
Neuro Assessment/Plan
Assessment
IMPRESSIONS/RECOMMENDATIONS:
Abrupt onset of questionable worsening of aphasia with significant emesis. Not clearly due to neurological dysfunction and more likely the patient had secondary disorder producing symptoms
Plan
Appreciate assistance of vascular surgery. There is no evidence of carotid stenosis that is needing surgical remediation
Goal of normotension
Goal of normoglycemia
Continue atorvastatin
Consider cognitive evaluation as outpatient
Will follow as needed.
Subjective/Objective
Subjective Data
Date of Service: August 29, 2023
Objective Data
Vital Signs
Temp Pulse Resp BP Pulse Ox
36.6 C 59 20 171/75 96
08/29/23 03:10 08/29/23 03:10 08/29/23 03:10 08/29/23 03:10 08/29/23 03:10
Lab Results
08/28/23 07:04
PT 13.1 Sec (11.4-14.6) 08/27/23 22:22
INR 1.01 08/27/23 22:22
APTT 27.8 Sec (23.4-35.0) 08/27/23 22:22
Sodium 137 mmol/L (135-145) 08/28/23 07:04
Potassium 4.1 mmol/L (3.5-5.1) 08/28/23 07:04
BUN 19 mg/dl (7-17) H 08/28/23 07:04
Glucose 87 mg/dl (70-99) 08/28/23 07:04
Calcium 9.6 mg/dl (8.4-10.2) 08/28/23 07:04
LDL Cholesterol, Calc 61 mg/dl 08/28/23 07:04
Vitamin B12 377 pg/ml (413-612) 08/28/23 07:04
Patient Allergies
No Known Allergies Allergy (Verified 12/17/22 14:23)
Data Reviewed
-
MRI Head: Report Reviewed
Carotid Ultrasound: Report Reviewed
Labs: Report Reviewed
Reviewed with: Nurse Practioner
Old Records: Summarized
[2023-08-29 08:07] LABS: ALT (SGPT) 28 U/L (0-35); AST (SGOT) 44 U/L (14-36); Albumin 3.5 g/dl (3.5-5.0); Alkaline Phosphatase 218 U/L (38-126); Blood Urea Nitrogen 16 mg/dl (7-17); Calcium 9.5 mg/dl (8.4-10.2); Carbon Dioxide 26 mmol/L (22-30); Chloride 109 mmol/L (98-107); Estimated Creatinine Clearance 38 ml/min; Glucose 84 mg/dl (70-99); Potassium 4.3 mmol/L (3.5-5.1); Sodium 142 mmol/L (135-145); Total Bilirubin 0.4 mg/dl (0.2-1.3); Total Protein 6.1 g/dl (6.3-8.2); eGFR 58.02
[2023-08-29] MEDS: NSS (PRESERVATIVE FREE) 10 ML IV (08:30)
[2023-08-29] MEDS: LOW STRENGTH ASPIRIN 81 MG PO (08:30)
[2023-08-29] MEDS: PROCARDIA XL (EXTENDED RELEASE) 30 MG PO (08:30)
[2023-08-29] MEDS: PROTONIX IV IV ×2 (08:30→08:37)
[2023-08-29] MEDS: VITAMIN B-12 1000 MCG PO (08:30)
[2023-08-29] MEDS: LIPITOR 40 MG PO (08:30)
[2023-08-29] MEDS: LR IV (09:04)
[2023-08-29 10:17] VITALS: BP 155/65; PULSE 73; O2SAT 96
[2023-08-29] MEDS: ROCEPHIN 1000 MG IV (10:44)
[2023-08-29] MEDS: STERILE WATER FOR INJECTION 10 ML IV (10:45)
[2023-08-29 11:00] VITALS: BP 123/52
--- NOTE | 2023-08-29 12:38 | W.PN.HOSP.TC ---
Addendum entered and electronically signed by June Whittington MD 08/29/23 13:16:
Stop Rocephin-UTI ruled out
Original Note:
Today's Communication/Plan
-
Possible discharge today
Assessment / Plan
Assessment / Plan
77-year-old female came to the hospital with nausea vomiting and feeling lousy. Ate left over dinner, She was found laying face down by the he helped him to sit upright. ( She had no furniture as they were inn the process of moving and
was sitting On the floor watching TV) Patient also had some emesis.
CTA of the neck-severe stenosis in the proximal right ICA with severe calcific atherosclerotic plaque. 50 to 70% diameter stenosis in the distal left CCA and proximal left ICA. Less than 50% diameter stenosis of both proximal vertebral arteries
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
HEAD CTA-Severe atherosclerotic plaque in both intracranial internal carotid arteries causing a 50-70% diameter stenosis on the left and less than 50% diameter stenosis on the right.No CTA evidence for severe stenosis or occlusion in the middle or
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
transcortical infarct in the medial left occipital and temporal lobes.Small chronic lacunar infarcts in the right caudate nucleus and right basal ganglia.Severe white matter leukoaraiosis in both cerebral hemispheres.
CVS: S1-S2 normal
Chest: CTA B/L
Abdomen: Soft, NT / Bowel sounds present
Extremities: No edema, normal pulses
KITCHEN STEWARD/STEWARDESS: Right hemianopsia
Right carotid-
Calcific and noncalcific plaque 50 to 69% stenosis.
Left carotid mild to moderate calcified plaque within the common carotid artery carotid bulb and proximal ICA. 50 to 69% stenosis
MRI of the brain-no acute changes. Focal encephalomalacia in the left occipital lobe extending to the posterior left temporal lobe compatible with evolutionary changes from the infarct from November 2022. Multiple small foci of CSF signal intensity
compatible with old lacunar infarcts. Moderate diffuse atrophy.
# Expressive aphasia- resolved
Prior history of CVA with right, numerous hemianopsia and expressive aphasia.
CT -Large chronic transcortical infarct in the medial left occipital and temporal lobes.Small chronic lacunar infarcts in the right caudate nucleus and right basal ganglia.
Vascular attending evaluation pending based on MRI/carotid ultrasound to make recommendations.
Neurology evaluation noted
Continue aspirin and statin
# Nausea and vomiting
She ate leftovers possible this is related to that
# Hypertension -blood pressure up-and-down
Would add a low-dose of lisinopril 2.5 mg as needed if the blood pressures over 140 mmHg
Patient's has a monitor at home and son states that they can monitor it and give it to her.
I have also asked her to follow-up with PCP in the next week to check blood pressure.
Side effects of lisinopril discussed
# Acute kidney injury-likely secondary to nausea and vomiting-Resolved.
#Met acidosis- Likely from nausea and vomiting . Resolved
# Elevated LFTs-ultrasound abdomen-CBD 0.6 endometrial. No gallstones or Montoya sign. LFTs better
# Nonobstructing right renal calculus
# Hyperlipidemia/Atherosclerosis-continue atorvastatin
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
# Tobacco use
# Ambulatory dysfunction
# DVT prophylaxis-Lovenox
# DNR status
Discussed with neurology-okay for discharge
Vascular attending notes pending- I have sent message to see if OK for discharge
D/W SOn at bed side
Anticipated Discharge: Today
Subjective/Interval History
-
Date of Service: August 29, 2023
Objective Data
-
Labs:
Laboratory Results
08/29/23
07:05
Sodium 142
Potassium 4.3
Chloride 109 H
Carbon Dioxide 26
BUN 16
Creatinine 1.0
Glucose 84
Calcium 9.5
Total Bilirubin 0.4
AST 44 H
ALT 28
Alkaline Phosphatase 218 H
Vital Signs:
Vital Signs
Temp Pulse Resp BP Pulse Ox
98.4 F 69 16 123/52 99
08/29/23 11:00 08/29/23 11:00 08/29/23 11:00 08/29/23 11:00 08/29/23 11:00
I&O
08/28/23 08/29/23 08/30/23
06:59 06:59 06:59
Intake Total 480 / 480 1919
Balance 480 / 480 1919
--- NOTE | 2023-08-29 12:59 | W.DS.TRANS ---
Addendum entered and electronically signed by June Whittington MD 08/30/23 07:48:
Dictation- [id number]
Original Note:
DC Summary - [employer]
-
Discharge Instructions:
Discharge Diagnosis/Procedures Nausea and vomiting, carotid stenosis,
hypertension, kidney stone, high cholesterol,
severe discogenic degenerative change in the
cervical spine
Diet As tolerated
Activity As tolerated
Driving Restrictions As prior to admission
Blood Work Liver tests in 2-3 weeks
Others Tests Your repeat carotid ultrasound is scheduled on 1
/03/2024 at 3 PM here at [facility]
Other Services VN
Instructions:
Stand-Alone Forms:
Changes to Home Medications: Yes
Discharge Medications:
DC Medications w/original date entered in [email or web address]
atorvastatin 40 mg tablet 40 mg PO DAILY High Cholesterol 08/27/23
aspirin 81 mg chewable tablet 81 mg PO DAILY Blood clot prevention/tx 90 days #90 tabs 08/29/23
cyanocobalamin (vitamin B-12) 1,000 mcg tablet 1,000 mcg PO DAILY low normal B12 #0 tabs 08/29/23
lisinopril 2.5 mg tablet 2.5 mg PO HS PRN SBP over 140 mm hg #30 tabs 08/29/23
nifedipine 30 mg tablet,extended release 30 mg PO DAILY Blood pressure 30 days #30 tabs 08/29/23
Home Medication Changes
new
B12 and lisinopril
Pending Results: No
[2023-08-29 14:33] VITALS: BP 160/71
--- NOTE | 2023-08-29 16:03 | CM ---
CM met with patient and to review discharge plan. Because they are in the midst of moving to [facility] in a [facility], their house is being packed up and they have set it up so they have what they need to live there until the move.
Home Health was ordered, however declined at this time. Advised if needs change, to contact Dian's PCP to request home care services.
Plan: Discharge to home with no needs
== END 2023-08-29 16:55 | disposition home health service (06) | DRG 683 ==
LOC: 4 EAST ACU 23:54
PROVIDERS: ADMITTING PHYSICIAN Hospitalist; ATTENDING PHYSICIAN Hospitalist; CONSULT PHYSICIAN Psychiatry & Neurology Neurology; CONSULT PHYSICIAN Surgery Vascular Surgery; EMERGENCY PHYSICIAN Student in an Organized Health Care Education/Training Program; FAMILY PHYSICIAN Internal Medicine
DX: N17.9 Acute kidney failure, unspecified (principal); E87.20 Acidosis, unspecified; R47.01 Aphasia; I65.23 Occlusion and stenosis of bilateral carotid arteries; R11.2 Nausea with vomiting, unspecified; H53.461 Homonymous bilateral field defects, right side; I10 Essential (primary) hypertension; N20.0 Calculus of kidney; I25.10 Atherosclerotic heart disease of native coronary artery without angina pectoris; E78.5 Hyperlipidemia, unspecified; Z66 Do not resuscitate; Z87.891 Personal history of nicotine dependence; Z79.82 Long term (current) use of aspirin; I69.320 Aphasia following cerebral infarction
CPT/HCPCS: 70450; 70496; 70498; 70551; 76700; 80053; 80061; 81003; 81015; 82248; 82607; 82728; 82746; 83036; 84443; 84484; 85025; 85027; 85610; 85730; 87086; 92523; 92610; 93005; 93880; 96374; 97116; 97162; 97166; 97535; 99291; Q9967

== ENCOUNTER → 2024-02-28 14:40 | Outpatient (REF) | payer MEDICARE, OTHER, SELFPAY | LOC: RAD 14:40 | PROVIDERS: ATTENDING PHYSICIAN Surgery Vascular Surgery; FAMILY PHYSICIAN Family Medicine | DX: Z86.73 Personal history of transient ischemic attack (TIA), and cerebral infarction without residual deficits (principal); I65.23 Occlusion and stenosis of bilateral carotid arteries | CPT/HCPCS: 93880 ==

== ENCOUNTER → 2024-09-17 09:46 | Outpatient (REF) | payer MEDICARE, OTHER, SELFPAY | LOC: RAD 09:46 | PROVIDERS: ATTENDING PHYSICIAN Surgery Vascular Surgery; FAMILY PHYSICIAN Internal Medicine | DX: I65.23 Occlusion and stenosis of bilateral carotid arteries (principal) | CPT/HCPCS: 93880 ==